=== PATIENT | female | born 1945 ===

== ENCOUNTER 2024-03-12 08:20 | Day surgery (SDC) | payer OTHER ==
[2024-03-12] MEDS ORDERED: LIDOCAINE HCL 1%/EPINEPHRINE 20ML VIAL IJ ONE (10:45)
[2024-03-12] MEDS ORDERED: BUPIVACAINE HCL 30 ML VIAL IJ ONE (10:45)
[2024-03-12] MEDS ORDERED: POVIDONE-IODINE 118 ML BOTT TOP ONE (10:45)
== END 2024-03-12 13:55 | disposition home or self-care (01) ==
LOC: CIR.AMB 08:20
PROVIDERS: ATTEND Colon & Rectal Surgery
DX: R15.9 Full incontinence of feces (principal); R32 Unspecified urinary incontinence; Z88.5 Allergy status to narcotic agent; F41.9 Anxiety disorder, unspecified; M19.90 Unspecified osteoarthritis, unspecified site
CPT/HCPCS: 64581; 95971; C1778

== ENCOUNTER 2024-03-26 07:10 | Day surgery (SDC) | payer OTHER ==
[2024-03-26] MEDS ORDERED: METROnidazole 500 MG TABLET PO ONE (15:00)
[2024-03-26] MEDS ORDERED: LIDOCAINE HCL 1%/EPINEPHRINE 20ML VIAL IJ ONE (15:00)
[2024-03-26] MEDS ORDERED: CEFTRIAXONE SODIUM 2,000 MG VIAL IV ONE (15:00)
[2024-03-26] MEDS ORDERED: BUPIVACAINE HCL 30 ML VIAL IJ ONE (15:00)
== END 2024-03-26 16:10 | disposition home or self-care (01) ==
LOC: CIR.AMB 07:10
PROVIDERS: ATTEND Colon & Rectal Surgery
DX: R15.9 Full incontinence of feces (principal); Z88.5 Allergy status to narcotic agent
CPT/HCPCS: 64590; 95971; C1767